=== PATIENT | female | born 1960 | race Caucasian/White ===

== ENCOUNTER → 2018-07-29 | Outpatient (CLI) | payer OTHER ==
[2018-07-29 15:41] LABS: BASOPHILS % (AUTO) 0.5 % (0-1); EOSINOPHILS # (AUTO) 0.3 X10'3 (0-0.9); EOSINOPHILS % (AUTO) 2.8 % (0-6); HEMATOCRIT 41.5 % (35.0-45.0); HEMOGLOBIN 13.6 g/dl (12.0-16.0); LYMPHOCYTES # (AUTO) 2.6 X10'3 (1.1-4.8); LYMPHOCYTES % (AUTO) 27.1 % (21-51); MEAN CORPUSCULAR HEMOGLOBIN 31.2 PG (27.0-31.0); MEAN CORPUSCULAR HGB CONC 32.9 % (33.0-36.5); MEAN CORPUSCULAR VOLUME 94.8 FL (78-98); MEAN PLATELET VOLUME 7.8 FL (7.4-10.4); MONOCYTES # (AUTO) 0.9 X10'3 (0-0.9); MONOCYTES % (AUTO) 9.2 % (2-12); NEUTROPHILS # (AUTO) 5.9 X10'3 (1.8-7.7); NEUTROPHILS % (AUTO) 60.4 % (42-75); PLATELET COUNT 253 X10'3 (140-440); RED BLOOD COUNT 4.38 X10'6 (4.20-5.60); RED CELL DISTRIBUTION WIDTH 15.5 % (11.5-14.5); WHITE BLOOD COUNT 9.8 X10'3 (4.5-11.0)
[2018-07-29 15:51] LABS: HEMOGLOBIN A1C 5.3 % (4.5-6.2)
[2018-07-29 16:05] LABS: ALANINE AMINOTRANSFERASE 20 U/L (12-78); ALBUMIN 3.4 G/DL (3.4-5.0); ALBUMIN/GLOBULIN RATIO 0.9 (1.1-1.5); ALKALINE PHOSPHATASE 72 IU/L (46-116); ANION GAP 7 (8-16); ASPARTATE AMINO TRANSFERASE 19 U/L (10-37); BILIRUBIN,TOTAL 0.3 MG/DL (0.1-1.0); BLOOD UREA NITROGEN 8 MG/DL (7-18); CALCIUM 8.8 MG/DL (8.5-10.1); CHLORIDE 102 MMOL/L (99-107); CHOLESTEROL 204 MG/DL (0-200); GLUCOSE 91 MG/DL (70-104); HDL CHOLESTEROL 69 MG/DL (35-60); LDL CHOLESTEROL 123 MG/DL (50-100); POTASSIUM 4.2 MMOL/L (3.5-5.1); SODIUM 140 MMOL/L (135-145); TOTAL CARBON DIOXIDE 31.3 MMOL/L (24-32); TOTAL PROTEIN 7.1 G/DL (6.4-8.2); TRIGLYCERIDES 90 MG/DL (20-135); eGFR 74 ML/MIN
== END | disposition home or self-care (01) ==
LOC: VAS 14:21
PROVIDERS: ATTEND Family Medicine
DX: Z13.1 Encounter for screening for diabetes mellitus (principal); Z51.81 Encounter for therapeutic drug level monitoring; Z13.220 Encounter for screening for lipoid disorders; M54.5 Low back pain; I71.4 Abdominal aortic aneurysm, without rupture; F17.200 Nicotine dependence, unspecified, uncomplicated; R91.8 Other nonspecific abnormal finding of lung field; E03.9 Hypothyroidism, unspecified
CPT/HCPCS: 36415; 72110; 80053; 80061; 83036; 84439; 84443; 85025; 93978

== ENCOUNTER 2019-07-08 19:37 | Emergency (ER) | payer OTHER ==
[~2019-07-08] VITALS: Ht 172.7 cm; Wt 79.0 kg
[2019-07-08 19:53] VITALS: BP 135/71
[2019-07-08] MEDS ORDERED: HYDROcodone/acetaminophen 5mg/325mg tablet PO ONE (21:55)
== END 2019-07-08 22:18 | disposition home or self-care (01) ==
LOC: ER 19:37
DX: S92.512A Displaced fracture of proximal phalanx of left lesser toe(s), initial encounter for closed fracture (principal); W22.8XXA Striking against or struck by other objects, initial encounter; Y93.89 Activity, other specified; Y92.89 Other specified places as the place of occurrence of the external cause; Y99.9 Unspecified external cause status
CPT/HCPCS: 72040; 73630; 99283

== ENCOUNTER 2019-09-16 08:57 | Emergency (ER) | payer OTHER ==
[~2019-09-16] VITALS: Ht 172.7 cm; Wt 81.8 kg
[2019-09-16 09:01] VITALS: BP 113/78
[2019-09-16] MEDS ORDERED: TETanus/Pertussis (Acell)/Diphther VAC/PF (Tdap-Adult) 0.5ml syringe IMVAC ONE (09:25)
[2019-09-16] MEDS ORDERED: LIDOcaine 1% 30ml preserv. free vial IJ ONE (09:25)
[2019-09-16] MEDS ORDERED: cephalexin 250mg capsule PO ONE (09:45)
[2019-09-16] MEDS ORDERED: CEPH500C5 PO (10:01)
== END 2019-09-16 10:27 | disposition home or self-care (01) ==
LOC: ER 08:57
DX: L08.89 Other specified local infections of the skin and subcutaneous tissue (principal); M79.644 Pain in right finger(s)
CPT/HCPCS: 64450; 90471; 90715; 99284; J2001

== ENCOUNTER 2020-01-04 14:03 | Outpatient (CLI) | payer OTHER | END 2020-01-04 23:59 | disposition home or self-care (01) | LOC: RAD 14:03 | PROVIDERS: ATTEND Internal Medicine | DX: M47.812 Spondylosis without myelopathy or radiculopathy, cervical region (principal); M50.21 Other cervical disc displacement, high cervical region; M50.221 Other cervical disc displacement at C4-C5 level; M50.222 Other cervical disc displacement at C5-C6 level | CPT/HCPCS: 72141 ==

== ENCOUNTER 2020-05-21 15:12 | Emergency (ER) | payer OTHER ==
[~2020-05-21] VITALS: Ht 172.7 cm; Wt 84.1 kg
[2020-05-21 15:15] VITALS: BP 139/95
--- NOTE | 2020-05-21 15:37 | NUR ---
Seen and assessed by provider.
== END 2020-05-21 15:39 | disposition home or self-care (01) ==
LOC: ER 15:12
DX: J06.9 Acute upper respiratory infection, unspecified (principal); Z20.828 Contact with and (suspected) exposure to other viral communicable diseases
CPT/HCPCS: 36415; 99282

== ENCOUNTER 2021-03-06 10:08 | Outpatient (CLI) | payer BC | END 2021-03-06 23:59 | disposition home or self-care (01) | LOC: RAD 10:08 | PROVIDERS: ATTEND Internal Medicine | DX: S83.231A Complex tear of medial meniscus, current injury, right knee, initial encounter (principal); M17.11 Unilateral primary osteoarthritis, right knee; M25.461 Effusion, right knee; M71.21 Synovial cyst of popliteal space [Baker], right knee; X58.XXXA Exposure to other specified factors, initial encounter; Y93.89 Activity, other specified; Y92.89 Other specified places as the place of occurrence of the external cause; Y99.8 Other external cause status | CPT/HCPCS: 73721 ==